=== PATIENT | male | born 1940 ===

== ENCOUNTER 2017-01-11 14:00 | Outpatient (RCR) | payer OTHER | END 2017-01-16 | disposition home or self-care (01) | LOC: PTY 14:00 | DX: R26.81 Unsteadiness on feet (principal) ==

== ENCOUNTER 2017-02-08 13:30 | Outpatient (RCR) | payer OTHER | END 2017-02-15 | disposition home or self-care (01) | LOC: PTY 13:30 | DX: R26.81 Unsteadiness on feet (principal) ==

== ENCOUNTER 2017-02-26 13:05 | Outpatient (RCR) | payer OTHER | END 2017-03-18 | disposition home or self-care (01) | LOC: PTY 13:05 | DX: R26.81 Unsteadiness on feet (principal) ==